=== PATIENT | male | born 1980 | race Caucasian/White ===

== ENCOUNTER 2018-09-24 11:10 | Emergency (ER) | payer SELFPAY ==
--- NOTE | 2018-09-24 12:42 | CT ---
CT BRAIN NONCONTRAST: DATE: 09/24/2018 HISTORY: 38-year-old male status post acute blunt head trauma. FINDINGS: There is no evidence of acute intra-axial or extra-axial hemorrhage. There is no midline shift or any other mass effect. There is no extra-axial fluid collection. The ventricles are normal in size and configuration. The tympanomastoid cavities, and the upper portions of the paranasal sinuses included in these images, are grossly clear. Calvarium is intact. IMPRESSION: Normal.
--- NOTE | 2018-09-24 12:44 | CT ---
CT CERVICAL SPINE NONCONTRAST: DATE: HISTORY: cervical trauma FINDINGS: There are no jumped or perched facets. There is no evidence of acute fracture. The vertebral body hei ghts are maintained. There is no prevertebral soft tissue swelling. IMPRESSION: No evidence of acute fracture or acute traumatic subluxation.
== END 2018-09-24 13:14 | disposition home or self-care (01) ==
LOC: ERS 11:10
DX: S00.03XA Contusion of scalp, initial encounter (principal); F17.210 Nicotine dependence, cigarettes, uncomplicated; W22.8XXA Striking against or struck by other objects, initial encounter
CPT/HCPCS: 70450; 72125